=== PATIENT | male | born 1970 | race Caucasian/White ===

== ENCOUNTER → 2019-06-23 15:47 | Outpatient (BNVA) | payer SELFPAY | PROVIDERS: Visit Provider Orthopaedic Surgery | DX: S41.151A Open bite of right upper arm, initial encounter (principal); W54.0XXA Bitten by dog, initial encounter | CPT/HCPCS: 73030 ==

== ENCOUNTER 2019-07-13 23:46 | Emergency (ER) | payer SELFPAY ==
[2019-07-13 23:47] VITALS: BP 131/94; PULSE 77; RESP 18; TEMP 36.9; O2SAT 96; BMI 27.9
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
--- NOTE | 2019-07-13 23:49 | XR_ITS ---
WS: [id number] XR chest 1V portable [id number] REASON FOR EXAM: cough FINDINGS: Lung lau are mildly hypoaerated. The heart mediastinum were normal. No definite rib fractures clavicle fractures are seen. No definite lung contusions or pneumonia. The hilum and apices normal. XR/XR chest 1V portable [id number] IMPRESSION: Negative chest for active pathology.
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
[2019-07-14 00:33] VITALS: RESP 18
[2019-07-14] MEDS: ondansetron 2 mg/ML SDV 2 mL 4 MG IVP (00:33)
[2019-07-14] MEDS: morphine 4 mg/mL SDV 1 mL IVP (00:33)
[2019-07-14 00:41] LABS: Basophils # 0.1 10^3/uL (0.0-0.1); Eosinophils # 0.3 10^3/uL (0.0-0.8); Hematocrit 41.2 % (42.0-52.0); Hemoglobin 13.9 g/dL (11.7-16.6); Lymphocytes # 3.7 10^3/uL (0.8-4.8); Lymphocytes % 40.7 %; Mean Corpuscular HGB Conc 33.7 g/dL (30.0-36.0); Mean Corpuscular Hemoglobin 31.4 pg (28.0-34.0); Mean Platelet Volume 11.1 fL (7.4-10.4); Monocytes # 0.8 10^3/uL (0.2-0.9); Monocytes % 8.8 %; Neutrophils # 4.1 10^3/uL (1.8-7.7); Neutrophils % 46.2 %; Nucleated Red Blood Cells % 0 %; Platelet Count 316 10^3/cmm (130-400); Red Blood Count 4.43 10^6/uL (4.1-5.3); Red Cell Distribution Width 13.4 % (12.1-15.1)
[2019-07-14 00:46] LABS: Partial Thromboplastin Time 25.2 SECONDS (23.9-36.7)
[2019-07-14] MEDS: sodium chloride 0.9% 1,000 ML 100 ML IV (00:57)
[2019-07-14] MEDS: sodium chloride 0.9% 1,000 ML 999 ML IV (00:58)
[2019-07-14 01:00] LABS: Alanine Aminotransferase 164 U/L (0-41); Albumin Level 4.6 g/dL (3.5-5.2); Alkaline Phosphatase 100 IU/L (40-130); Aspartate Amino Transferase 102 U/L (0-40); Blood Urea Nitrogen 18 mg/dL (6-20); Calcium 8.9 mg/dL (8.5-10.5); Carbon Dioxide 26 mmol/L (22-29); Chloride 96 mmol/L (98-107); Globulin 2.8 g/dL (1.3-4.6); Glomerular Filtration Rate 80.1 mL/min (90-130); Glucose 111 mg/dL (65-115); Osmolality Calculated 281 mOsm/kg (285-295); Sodium 137 mmol/L (136-145); Total Bilirubin 0.2 mg/dL (0.15-1.2); Total Protein 7.4 g/dL (6.6-8.7)
[2019-07-14] MEDS: iodixanol 320 mg/mL 100mL Btl IV (01:08)
[2019-07-14 02:13] VITALS: RESP 18
[2019-07-14] MEDS: morphine 4 mg/mL SDV 1 mL 2 MG IVP (02:13)
[2019-07-14 07:40] VITALS: RESP 16
[2019-07-14 07:53] VITALS: RESP 17; O2SAT 97
[2019-07-14 08:56] VITALS: RESP 16; O2SAT 98
== END 2019-07-14 08:57 | disposition home or self-care (01) ==
PROVIDERS: Emergency Provider Emergency Medicine
DX: S06.0X0A Concussion without loss of consciousness, initial encounter (principal); T14.8XXA Other injury of unspecified body region, initial encounter; R91.8 Other nonspecific abnormal finding of lung field; V09.9XXA Pedestrian injured in unspecified transport accident, initial encounter; I10 Essential (primary) hypertension; F17.210 Nicotine dependence, cigarettes, uncomplicated
CPT/HCPCS: 12345; 36415; 70450; 71045; 71260; 72125; 72128; 72131; 72170; 73060; 73502; 73552; 74177; 80053; 85025; 85730; 96361; 96374; 96375; 96376; 99283; 99284; A9270; J0131; J2270; J2405; J7030; Q9967

== ENCOUNTER 2019-09-28 17:36 | Emergency (ER) | payer SELFPAY ==
[2019-09-28 17:41] VITALS: BP 149/94; PULSE 91; RESP 18; TEMP 36.9; O2SAT 97; BMI 25.5
[2019-09-28 19:16] LABS: Basophils # 0.1 10^3/uL (0.0-0.1); Basophils % 0.5 %; Eosinophils # 0.1 10^3/uL (0.0-0.8); Eosinophils % 0.6 %; Hematocrit 37.3 % (42.0-52.0); Hemoglobin 12.4 g/dL (11.7-16.6); Lymphocytes # 2.6 10^3/uL (0.8-4.8); Lymphocytes % 16.2 %; Mean Corpuscular HGB Conc 33.2 g/dL (30.0-36.0); Mean Corpuscular Hemoglobin 33.2 pg (28.0-34.0); Mean Platelet Volume 12.2 fL (7.4-10.4); Monocytes # 1.3 10^3/uL (0.2-0.9); Monocytes % 8.1 %; Neutrophils % 74.2 %; Nucleated Red Blood Cells % 0 %; Platelet Count 260 10^3/cmm (130-400); Red Blood Count 3.73 10^6/uL (4.1-5.3); Red Cell Distribution Width 12.7 % (12.1-15.1); White Blood Count 16.3 10^3/uL (4.0-10.0)
--- NOTE | 2019-09-28 19:58 | ED_ITS ---
HPI - Skin/Abscess/Foreign Bdy General: Chief complaint: Skin/Abscess/Foreign Body Stated complaint: knot under armpit Time Seen by Provider: 09/28/19 19:34 History of Present Illness: HPI narrative: Patient is here with a pimple underneath his left arm and axillary area a few days ago and he stuck a pen and got like a little bit of blood out of it that he went to the ER and treated with antibiotics and not improved complaint: abscess/boil Onset (ago): day(s) Tetanus up to date: yes Severity: moderate Severity scale (1-10): 7 Quality: aching Associated symptoms: Deny chills, fever(s), nausea or vomiting Review of Systems Narrative: Swelling of left axilla times few days worsening every day Const: Denies: fever(s), chills or body aches Eyes: Denies: change in vision or blurry vision ENMT: Denies: throat pain or nasal congestion Card: Denies: chest pain or dyspnea on exertion Resp: Denies: dyspnea, productive cough or non-productive cough GI: Denies: abdominal pain, nausea or vomiting : Denies: difficulty urinating Musc: Denies: extremity pain Skin/Breast: Denies: rash Neuro: Denies: headache(s) Psych: Denies: anxiety or depression Alan/Lymph: Denies: easy bruising PFS ED PFSH: Medical History (Updated 09/28/19 @ 19:58 by SARAH Carter) Hypertension Social History Smoking and tobacco status: current every day smoker Physical Exam Const: COMMON NORMALS: no acute distress, average body habitus and patient oriented x3 HENMT: COMMON NORMALS: normocephalic HEAD & SCALP: normal to inspection and normocephalic FACE & SINUS: normal facial exam Eye: COMMON NORMALS: conjunctivae normal GENERAL EYE: appearance normal, both eyes and all related structures CONJUNCTIVA: Yes conjunctivae normal Neck/C-Spine: COMMON NORMALS: no JVD Chest: COMMONS NORMALS: normal inspection of the chest Resp: COMMON NORMALS: normal respiratory effort and clear to auscultation bilaterally AUSCULTATION: clear to auscultation bilaterally Cardio: COMMON NORMALS: no JVD, regular rate and regular rhythm RATE: regular rate RHYTHM: regular rhythm GI: COMMON NORMALS: Normal to inspection, nondistended, normoactive bowel sounds present Extremity: COMMON NORMALS: normal to inspection and full ROM Neuro: COMMON NORMALS: patient oriented x3 Skin: NARRATIVE SKIN EXAM: Large abscess in left axilla Procedures Abscess I/D Site: other (Axilla) Side (if applicable): left Local Anesthetic: lidocaine 1% Amount of anesthesia used (mL): 3 Technique: incised with #11 blade Amount of fluid expressed (mL): 10 Irrigation: Yes Packing used?: iodoform Course Vital Signs: Vital signs: Vital Signs Temperature 98.5 F 09/28/19 17:41 Pulse Rate 91 09/28/19 17:41 Respiratory Rate 18 09/28/19 17:41 Blood Pressure 149/94 09/28/19 17:41 Pulse Oximetry 97 09/28/19 17:41 MDM - Skin/Abscess/Foreign Bdy Lab Data: Labs: Lab Results 09/28/19 09/28/19 Range/Units 18:40 18:40 WBC 16.3 H (4.0-10.0) 10^3/ uL RBC 3.73 L (4.1-5.3) 10^6/u L Hgb 12.4 (11.7-16.6) g/dL Hct 37.3 L (42.0-52.0) % MCV 100.0 H (80-94) fL MCH 33.2 (28.0-34.0) pg MCHC 33.2 (30.0-36.0) g/dL RDW 12.7 (12.1-15.1) % Plt Count 260 (130-400) 10^3/c mm MPV 12.2 H (7.4-10.4) fL Neut % (Auto) 74.2 % Lymph % (Auto) 16.2 % [place] % (Auto) 8.1 % Eos % (Auto) 0.6 % Baso % (Auto) 0.5 % Neut # (Auto) 12.10 H (1.8-7.7) 10^3/u L Lymph # (Auto) 2.6 (0.8-4.8) 10^3/u L [place] # (Auto) 1.3 H (0.2-0.9) 10^3/u L Eos # (Auto) 0.1 (0.0-0.8) 10^3/u L Baso # (Auto) 0.1 (0.0-0.1) 10^3/u L Nucleated RBC % (a uto) 0 % Nucleated RBCs # 0.0 /100WBC Lactate 2.0 (0.5-2.2) mmol/L Discharge Plan Discharge Patient Disposition: Home, Self-Care Clinical Impression: Abscess of skin or subcutaneous tissue Qualifiers: Site of cutaneous abscess: extremity Site of cutaneous abscess of extremity: axilla Laterality: left Qualified Code(s): L02.412 - Cutaneous abscess of left axilla Condition: Stable Prescriptions: New Levaquin 500 mg tablet 500 mg PO DAILY 7 Days Qty: 7 RF: 0 No Action propranolol 60 mg capsule,extended release 24 hr 60 mg PO DAILY RF: 0 ibuprofen 200 mg capsule 200 mg PO Q6H PRN (Reason: Pain) RF: 0 hydrocodone-acetaminophen [[place]] 5-325 mg tablet 1 tab PO Q4H PRN (Reason: pain) 7 Days Qty: 14 RF: 0 cyclobenzaprine 10 mg tablet 10 mg PO TID PRN (Reason: muscle spasm) Qty: 10 RF: 0 ibuprofen 800 mg tablet 800 mg PO TID PRN (Reason: pain) Qty: 30 RF: 0 Discharge Orders: Discharge Order (Routine); Ordered 09/28/19 Ordered By: Prasanth Jean Discharge Diet: As Directed Discharge Activity: Increase activity as tolerated Patient Instructions: Abscess (ED) Activity Restrictions/Additional Instructions: Follow-up with medical provider as directed. Take medications as prescribed. Return to the ER or your medical provider if condition worsens. Please read and understand discharge instructions. If any questions ask please.. Remove packing 2436 hrs. Coding Level of Care Code ED Security Operations Manager for Daniele Sher
[2019-09-28] MEDS: levoFLOXacin 500 mg Tablet PO (20:06)
[2019-09-28] MEDS: lidocaine 1% INJ 20 mL 5 ML INTRADERMA (20:06)
--- NOTE | 2019-09-28 20:07 | PC.NURSE ---
Applied bandage to patient's Left Axilla. Placed 4x4 gauze and secured with foam tape.
== END 2019-09-28 20:23 | disposition home or self-care (01) ==
PROVIDERS: Emergency Provider Nurse Practitioner Family
DX: L02.412 Cutaneous abscess of left axilla (principal); I10 Essential (primary) hypertension; F17.210 Nicotine dependence, cigarettes, uncomplicated
CPT/HCPCS: 10060; 12345; 36415; 83605; 85025; 96372; 99281; 99283

== ENCOUNTER 2019-11-18 23:35 | Emergency (ER) | payer SELFPAY ==
--- NOTE | 2019-11-18 23:36 | ED_ITS ---
HPI - Psych General: Chief Complaint: Psychiatric Symptoms Stated Complaint: HALLUCINATIONS Time Seen by Provider: 11/18/19 23:36 Source: patient Mode of arrival: ambulatory Limitations: no limitations History of Present Illness: HPI Narrative: Patient comes in today for concerns of people trying to hurt him. Patient thinks that there is people coming out of the [place] near his mother's house that are threatening him. Patient denies any medical problems except blood pressure and chronic left leg pain. Patient works as a technical support assistant. Patient appears well. Patient appears in no acute distress. Patient states that he feels more calm now that he is away from his mother's home. Patient does not want to go back to his mother's home because he feels threatened there. Review of Systems General: Reports: 10 or more systems reviewed and unremarkable except in HPI and below Psych: Reports: paranoia [facility] ED PFSH: Medical History (Updated 11/19/19 @ 01:05 by SARAH Hughes) Hypertension Social History Smoking and tobacco status: current every day smoker Physical Exam Const: COMMON NORMALS: no acute distress and patient oriented x3 GENERAL APPEARANCE: cooperative and well kempt HENMT: COMMON NORMALS: normocephalic, TM's normal bilaterally and Normal external nose present HEAD & SCALP: normal to inspection and normocephalic NOSE: Normal external nose present TYMPANIC MEMBRANE: TM's normal bilaterally MOUTH: Normal oral and palatal mucosa present THROAT: posterior oropharynx normal Eye: GENERAL EYE: appearance normal, both eyes and all related structures Neck/C-Spine: COMMON NORMALS: full ROM Lymph: LYMPHATIC: no lymphadenopathy noted Chest: COMMONS NORMALS: normal inspection of the chest Resp: COMMON NORMALS: normal respiratory effort EFFORT & INSPECTION: Yes able to speak in complete sentences Cardio: COMMON NORMALS: regular rate and regular rhythm RATE: regular rate RHYTHM: regular rhythm GI: COMMON NORMALS: non-tender : COMMON NORMALS: Yes no CVA tenderness BLADDER/KIDNEY EXAM: Yes no CVA tenderness Back/Pelvis: COMMON NORMALS: no CVA tenderness and thoracic and lumbar spine normal to inspection Extremity: COMMON NORMALS: normal to inspection Neuro: COMMON NORMALS: patient oriented x3 and moves all extremities Psych: COMMON NORMALS: cooperative and speech normal APPEARANCE: Yes well kempt ATTITUDE: Yes paranoid (thinks someone is trying to kill him at his mothers farm) ACTIVITY/MOTOR BEHAVIOR: Yes appropriate eye contact SPEECH: Yes normal speech MOOD & AFFECT: Yes elevated mood THOUGHT PROCESS: Circumstantial thought process present THOUGHT CONTENT: No Suicidality present and No Homicidality present ATTENTION/CONCENTRATION: Yes concentration grossly intact INSIGHT: questionable JUDGEMENT: Fair judgement present (Psych) Skin: COMMON NORMALS: no rashes or lesions noted GENERAL SKIN EXAM: no rashes or lesions noted MDM - Psych MDM Narrative: Medical decision making narrative: Patient comes in today with concerns of feeling threatened by other people. Patient appears well. Patient appears responsive. Patient reports previous episode in the past where he has felt like this but once moving away from his home he felt better. Exam notes a cooperative individual who denies any suicidal or homicidal thoughts. Patient does have odd behavior and reports paranoia where he feels someone is threatening him. Skin is warm and dry. Vital signs are normal. Differential diagnosis includes but not limited to acute psychosis, delirium, dementia, substance abuse. Patient was positive for opiates and amphetamines. I talked with patient and offered admission to the neuropsychiatric unit for further treatment and evaluation. Patient refused stated that he felt safe after leaving his mother's house. Patient called for a taxi to take him to a hotel. Manger of lab work was normal. Lab Data: Labs: Lab Results 11/18/19 11/18/19 11/18/19 Range/Units 23:55 23:55 23:58 WBC 14.2 H (4.0-10.0) 10^3/ uL RBC 4.32 (4.1-5.3) 10^6/u L Hgb 14.0 (11.7-16.6) g/dL Hct 40.7 L (42.0-52.0) % MCV 94.2 H (80-94) fL MCH 32.4 (28.0-34.0) pg MCHC 34.4 (30.0-36.0) g/dL RDW 12.6 (12.1-15.1) % Plt Count 289 (130-400) 10^3/c mm MPV 11.0 H (7.4-10.4) fL Neut % (Auto) 67.6 % Lymph % (Auto) 19.5 % [place] % (Auto) 9.7 % Eos % (Auto) 1.8 % Baso % (Auto) 1.0 % Neut # (Auto) 9.61 H (1.8-7.7) 10^3/u L Lymph # (Auto) 2.8 (0.8-4.8) 10^3/u L [place] # (Auto) 1.4 H (0.2-0.9) 10^3/u L Eos # (Auto) 0.3 (0.0-0.8) 10^3/u L Baso # (Auto) 0.1 (0.0-0.1) 10^3/u L Nucleated RBC % (a uto) 0 % Nucleated RBCs # 0.0 /100WBC Sodium 135 L (136-145) mmol/L Potassium 3.5 (3.5-5.1) mmol/L Chloride 99 (98-107) mmol/L Carbon Dioxide 21 L (22-29) mmol/L Anion Gap 18.5 (5-19) BUN 13 (6-20) mg/dL Creatinine 1.0 (0.7-1.2) mg/dL GFR Calculation 79.8 L (90-130) mL/min Glucose 147 H (65-115) mg/dL Calculated Osmolal ity 279 L (285-295) mOsm/k g Calcium 8.9 (8.5-10.5) mg/dL Total Bilirubin 0.8 (0.15-1.2) mg/dL AST 46 H (0-40) U/L ALT 76 H (0-41) U/L Alkaline Phosphata se 91 (40-130) IU/L Total Protein 8.0 (6.6-8.7) g/dL Albumin 4.9 (3.5-5.2) g/dL Globulin 3.1 (1.3-4.6) g/dL TSH 0.69 (0.27-4.20) uIU/ mL Urine Color Yellow (Yellow) Urine Appearance Clear (CLEAR) Urine pH 5 (5-7) Ur Specific Gravit y 1.010 (1.005-1.030) Urine Protein Neg (Negative) Urine Glucose (UA) Norm (Normal) Urine Ketones Negative (Negative) Urine Blood Neg (Negative) Urine Nitrate Negative (Negative) Urine Bilirubin Neg (Negative) Urine Urobilinogen Norm (Negative) mg/dL Ur Leukocyte Gayle ase Negative (Negative) Salicylates < 0.3 L (3-10) mg/dL Urine Opiates Scre en (Negative) ng/mL Acetaminophen 7.7 L (10-30) ug/mL Ur Barbiturates Sc reen (Negative) ng/mL Ur Phencyclidine S crn (Negative) ng/mL Ur Amphetamines Sc reen (Negative) ng/mL U Benzodiazepines Scrn (Negative) ng/mL Urine Cocaine Scre en (Negative) ng/mL U Marijuana (THC) Screen (Negative) ng/mL Ethyl Alcohol < 10 (0-10) mg/dL 11/18/19 Range/Units 23:58 WBC (4.0-10.0) 10^3/ uL RBC (4.1-5.3) 10^6/u L Hgb (11.7-16.6) g/dL Hct (42.0-52.0) % MCV (80-94) fL MCH (28.0-34.0) pg MCHC (30.0-36.0) g/dL RDW (12.1-15.1) % Plt Count (130-400) 10^3/c mm MPV (7.4-10.4) fL Neut % (Auto) % Lymph % (Auto) % [place] % (Auto) % Eos % (Auto) % Baso % (Auto) % Neut # (Auto) (1.8-7.7) 10^3/u L Lymph # (Auto) (0.8-4.8) 10^3/u L [place] # (Auto) (0.2-0.9) 10^3/u L Eos # (Auto) (0.0-0.8) 10^3/u L Baso # (Auto) (0.0-0.1) 10^3/u L Nucleated RBC % (a uto) % Nucleated RBCs # /100WBC Sodium (136-145) mmol/L Potassium (3.5-5.1) mmol/L Chloride (98-107) mmol/L Carbon Dioxide (22-29) mmol/L Anion Gap (5-19) BUN (6-20) mg/dL Creatinine (0.7-1.2) mg/dL GFR Calculation (90-130) mL/min Glucose (65-115) mg/dL Calculated Osmolal ity (285-295) mOsm/k g Calcium (8.5-10.5) mg/dL Total Bilirubin (0.15-1.2) mg/dL AST (0-40) U/L ALT (0-41) U/L Alkaline Phosphata se (40-130) IU/L Total Protein (6.6-8.7) g/dL Albumin (3.5-5.2) g/dL Globulin (1.3-4.6) g/dL TSH (0.27-4.20) uIU/ mL Urine Color (Yellow) Urine Appearance (CLEAR) Urine pH (5-7) Ur Specific Gravit y (1.005-1.030) Urine Protein (Negative) Urine Glucose (UA) (Normal) Urine Ketones (Negative) Urine Blood (Negative) Urine Nitrate (Negative) Urine Bilirubin (Negative) Urine Urobilinogen (Negative) mg/dL Ur Leukocyte Gayle ase (Negative) Salicylates (3-10) mg/dL Urine Opiates Scre en Positive H (Negative) ng/mL Acetaminophen (10-30) ug/mL Ur Barbiturates Sc reen Negative (Negative) ng/mL Ur Phencyclidine S crn Negative (Negative) ng/mL Ur Amphetamines Sc reen Positive H (Negative) ng/mL U Benzodiazepines Scrn Negative (Negative) ng/mL Urine Cocaine Scre en Negative (Negative) ng/mL U Marijuana (THC) Screen Negative (Negative) ng/mL Ethyl Alcohol (0-10) mg/dL Discharge Plan Discharge Patient Disposition: Home Clinical Impression: Acute paranoia Condition: Stable Prescriptions: No Action propranolol 60 mg capsule,extended release 24 hr 60 mg PO DAILY RF: 0 ibuprofen 200 mg capsule 200 mg PO Q6H PRN (Reason: Pain) RF: 0 hydrocodone-acetaminophen [[place]] 5-325 mg tablet 1 tab PO Q4H PRN (Reason: pain) 7 Days Qty: 14 RF: 0 cyclobenzaprine 10 mg tablet 10 mg PO TID PRN (Reason: muscle spasm) Qty: 10 RF: 0 ibuprofen 800 mg tablet 800 mg PO TID PRN (Reason: pain) Qty: 30 RF: 0 Discharge Orders: Discharge Order (Routine); Ordered 11/19/19 Ordered By: Blayne Ball Discharge Diet: Usual diet Discharge Activity: Increase activity as tolerated Activity Restrictions/Additional Instructions: Activity as tolerated. Continue with routine medications as directed. Avoid the use of other medications unless prescribed by provider. Follow-up with primary care as needed. Discharge Date/Time: 11/19/19 01:19 Coding Level of Care Code ED Health And Safety Technician for [place] [employer] Exam Comprehensive
[2019-11-18 23:39] VITALS: BP 133/100; PULSE 102; RESP 22; TEMP 36.8; O2SAT 97; BMI 27.3
--- NOTE | 2019-11-18 23:51 | PC.NURSE ---
Pt presents to er with propanolol, chlorthalidone and hydrocodone. Cigarettes and phone valve mechanic.
[2019-11-19 00:02] LABS: Basophils # 0.1 10^3/uL (0.0-0.1); Eosinophils # 0.3 10^3/uL (0.0-0.8); Eosinophils % 1.8 %; Hematocrit 40.7 % (42.0-52.0); Lymphocytes # 2.8 10^3/uL (0.8-4.8); Lymphocytes % 19.5 %; Mean Corpuscular HGB Conc 34.4 g/dL (30.0-36.0); Mean Corpuscular Hemoglobin 32.4 pg (28.0-34.0); Mean Corpuscular Volume 94.2 fL (80-94); Monocytes # 1.4 10^3/uL (0.2-0.9); Monocytes % 9.7 %; Neutrophils # 9.61 10^3/uL (1.8-7.7); Neutrophils % 67.6 %; Nucleated Red Blood Cells % 0 %; Platelet Count 289 10^3/cmm (130-400); Red Blood Count 4.32 10^6/uL (4.1-5.3); Red Cell Distribution Width 12.6 % (12.1-15.1); White Blood Count 14.2 10^3/uL (4.0-10.0)
[2019-11-19 00:03] VITALS: BP 143/111; PULSE 97; RESP 16; O2SAT 98
[2019-11-19] MEDS: HYDROcodone-acetaminophen 10-325 mg Tablet 1 TAB PO (00:06)
[2019-11-19 00:09] LABS: Add Urine Microscopic? NO
[2019-11-19 00:20] VITALS: BP 138/101; PULSE 97; RESP 18; O2SAT 98
[2019-11-19 00:24] LABS: Amphetamines Screen Urine Positive (Negative); Barbiturates Screen Urine Negative (Negative); Benzodiazepines Screen Urine Negative (Negative); Cocaine Screen Urine Negative (Negative); Opiate Screen Urine Positive (Negative); PCP Screen Urine Negative (Negative); THC Screen Urine Negative (Negative)
[2019-11-19 00:32] LABS: Bilirubin Urine Neg (Negative); Blood Urine Neg (Negative); Glucose Urine UA Norm (Normal); Ketones Urine Negative (Negative); Leukocyte Esterase Urine Negative (Negative); Nitrate Urine Negative (Negative); Protein Urine Neg (Negative); Urine Appearance Clear (CLEAR); Urine Color Yellow (Yellow); Urobilinogen Urine Norm (Negative); pH Urine 5 (5-7)
[2019-11-19 00:33] LABS: Acetaminophen 7.7 ug/mL (10-30); Alanine Aminotransferase 76 U/L (0-41); Albumin Level 4.9 g/dL (3.5-5.2); Alkaline Phosphatase 91 IU/L (40-130); Anion Gap 18.5 (5-19); Aspartate Amino Transferase 46 U/L (0-40); Blood Urea Nitrogen 13 mg/dL (6-20); Calcium 8.9 mg/dL (8.5-10.5); Carbon Dioxide 21 mmol/L (22-29); Chloride 99 mmol/L (98-107); Globulin 3.1 g/dL (1.3-4.6); Glomerular Filtration Rate 79.8 mL/min (90-130); Glucose 147 mg/dL (65-115); Osmolality Calculated 279 mOsm/kg (285-295); Potassium 3.5 mmol/L (3.5-5.1); Sodium 135 mmol/L (136-145); Thyroid Stimulating Hormone 0.69 uIU/mL (0.27-4.20); Total Bilirubin 0.8 mg/dL (0.15-1.2)
[2019-11-19 00:36] LABS: Alcohol Level < 10 mg/dL (0-10); Salicylate < 0.3 mg/dL (3-10)
[2019-11-19] MEDS: OLANZapine 5 mg TABLET PO (00:48)
[2019-11-19 00:49] VITALS: BP 166/141; PULSE 116; RESP 18; O2SAT 96
[2019-11-19 01:15] VITALS: BP 159/129; PULSE 124; RESP 15; O2SAT 96
== END 2019-11-19 01:19 | disposition home or self-care (01) ==
PROVIDERS: Emergency Provider Nurse Practitioner Family
DX: F22 Delusional disorders (principal); I10 Essential (primary) hypertension; F17.210 Nicotine dependence, cigarettes, uncomplicated
CPT/HCPCS: 12345; 80053; 80306; 80307; 81003; 84443; 85025; 99282; 99283